=== PATIENT | female | born 1970 | race Caucasian/White ===

== ENCOUNTER 2018-06-14 18:50 | Emergency (ER) | payer OTHER ==
[2018-06-14] MEDS ORDERED: KETOROLAC TROMETHAMINE 30MG/ML ONE (19:30)
== END 2018-06-14 20:02 | disposition home or self-care (01) ==
LOC: EDH 18:50
DX: K02.9 Dental caries, unspecified (principal); Z88.8 Allergy status to other drugs, medicaments and biological substances; M19.90 Unspecified osteoarthritis, unspecified site; Z72.0 Tobacco use
CPT/HCPCS: 96372; 99283; J1885

== ENCOUNTER 2018-07-30 16:31 | Emergency (ER) | payer MEDICAID ==
[2018-07-30] MEDS ORDERED: IBUPROFEN 600 MG TABLET ONE (16:51)
== END 2018-07-30 16:55 | disposition home or self-care (01) ==
LOC: EDH 16:31
DX: G89.29 Other chronic pain (principal); K08.89 Other specified disorders of teeth and supporting structures; F41.9 Anxiety disorder, unspecified; I10 Essential (primary) hypertension; J44.9 Chronic obstructive pulmonary disease, unspecified; Z98.51 Tubal ligation status; Z88.8 Allergy status to other drugs, medicaments and biological substances; Z72.0 Tobacco use